=== PATIENT | male | born 1940 | race Caucasian/White ===

== ENCOUNTER 2021-09-10 11:30 | Inpatient (IN) | payer MEDICARE, SELFPAY ==
[2021-09-10] VITALS (21 sets, daily range): BP systolic 63–138; BP diastolic 33–76; PULSE 70–112; RESP 16–32; TEMP 35.7–36.6; O2SAT 96–100; BMI 27.5
--- NOTE | ~2021-09-10 | US_ITS ---
EXAMINATION: US art doppler w press LE BI DATE: 09/10/2021 14:26 INDICATION: Peripheral arterial disease. TECHNIQUE: Segmental pressures and plethysmographic and Doppler waveforms of the brachial and lower e xtremity arteries were obtained. COMPARISON: None. FINDINGS: Right and left brachial artery pressures of 113 mm Hg and 118 mm Hg, respectively, are concordant (no rmal difference <= 30 mmHg). The patient could not tolerate right thigh pressure measurements. The right ankle-brachial index (CRISTIANO ) could not be measured due to inability to cuff occlude the arteries (normal >= 0.9-1.0). The right great toe-brachial index (TBI) is 0.47 (normal >= 0.65). Arterial Doppler waveforms are biphasic in c ommon femoral artery, triphasic in superficial femoral artery, and biphasic in popliteal artery and a t the ankle. The patient could not tolerate left thigh pressure measurements. The left CRISTIANO could not be measured d ue to inability to cuff-occlude the arteries. The left TBI is 0.47. Arterial Doppler waveforms are bi phasic from common femoral artery to the ankle. IMPRESSION: 1. Decreased bilateral TBIs and nondiagnostic ABIs, consistent with arterial occlusive disease. Reviewed, dictated and finalized at location A. ND SUPPORT EQUIPMENT FITTER IMPRESSION: 1. Decreased bilateral TBIs and nondiagnostic ABIs, consistent with arterial oc clusive disease.
--- NOTE | ~2021-09-10 | US_ITS ---
EXAMINATION: US thoracentesis DATE: 09/11/2021 15:00 INDICATION: pleural effusion TECHNIQUE: The procedure and its risks, benefits, and alternatives were discussed with the patient's sales representative aircraft by phone. The skin was prepped and draped in sterile fashion. 1% lidocaine was used fo r local anesthesia. Under ultrasound guidance, a 5 Fr catheter with trochar was advanced into the lef t pleural effusion. Fluid was aspirated. The catheter was removed, and a dressing was applied. There were no immediate complications. FINDINGS: Ultrasound images demonstrate a left pleural effusion and the catheter within the fluid. IMPRESSION: 1. Successful ultrasound-guided thoracentesis yielding 1000 mL of clear, alanna-colored fluid. Reviewed, dictated and finalized at location A. PLOYMENT SPECIALIST IMPRESSION: 1. Successful ultrasound-guided thoracentesis yielding 1000 mL of clear, alanna -colored fluid.
--- NOTE | ~2021-09-10 | CT_ITS ---
EXAMINATION: CT abdomen pelvis w con DATE: 09/10/2021 13:38 INDICATION: Gastrointestinal bleeding TECHNIQUE: Computed tomography (CT) of the abdomen and pelvis was performed with 100 cc Omnipaque 350 intravenous contrast. Automated exposure control and iterative reconstruction technique were employe d. Exam dose: 1136.21 mGy-cm total exam DLP. COMPARISON: None. FINDINGS: There is patchy infiltrate or atelectasis in the lower lung zones including lingula, left l ower lobe and middle lobe and right lower lobe. There is moderate left pleural effusion with associated compressive left lower lobe atelectasis. Normal heart size. No pericardial effusion. Status post sternotomy and mitral valve replacement. Mild bilateral gynecomastia. There are numerous small stones at the dependent aspect of the gallbladder. No gallbladder wall thick ening or pericholecystic fluid or fat stranding. No bile duct or pancreatic duct dilatation. No hepatic, pancreatic, splenic space-occupying mass lesion. The adrenal glands are unremarkable. No renal mass lesion or urinary tract calculus or hydroureteronephrosis. There is a Dupree catheter within the evacuated urinary bladder, which is not optimally evaluated on t his examination. Prostate enlargement. There is extensive calcification of the abdominal aorta, superior mesenteric and renal arteries and i liac and femoral arteries. No intraperitoneal or retroperitoneal or pelvic mass lesion or adenopathy or ascites is evident. Normal appendix. No bowel obstruction, bowel wall thickening, pneumatosis or intraperitoneal free air . Included skeletal structures are unremarkable. No suspicious osteolytic or osteoblastic lesions. IMPRESSION: Moderate left pleural effusion and bilateral basilar infiltrate or atelectasis Status post mitral valve replacement Cholelithiasis Reviewed, dictated and finalized at Location A. Reviewed, dictated and finalized at location B. ANICAL ENGINEERING MANAGER
--- NOTE | ~2021-09-10 | XR_ITS ---
[id number] 09/11/2021 15:18 Indication: Status post thoracentesis. Procedure: 2 view chest Comparison: CT dated 09/11/2021 Findings: Patchy bilateral airspace disease, compatible with pneumonia. Status post median sternotomy for CABG. Small pleural effusions. Heart size normal. No pneumothorax identified. Impression: 1: Patchy bilateral airspace disease, compatible with pneumonia. 2: Small pleural effusions. Reviewed, dictated and finalized at location A. EY TECHNICIAN Impression: 1: Patchy bilateral airspace disease, compatible with pneumonia. 2: Small pleural effusions.
--- NOTE | ~2021-09-10 | CT_ITS ---
EXAMINATION: CT abdomen pelvis wo con DATE: 09/11/2021 15:23 INDICATION: Gastrointestinal bleed. Assess for signs of mesenteric vascular insufficiency. TECHNIQUE: Computed tomography (CT) of the abdomen and pelvis was performed without intravenous contr ast. Automated exposure control and iterative reconstruction technique were employed. The dose-length product was 1211.64 mGy-cm. COMPARISON: 09/11/2021 FINDINGS: Small bilateral pleural effusions. Mild patchy airspace opacities involving the bilateral lower lobes , right middle lobe and lingula. Heart size is normal. Atherosclerotic coronary artery calcific lesio n. Aortic valve calcification. Median sternotomy wires and mitral annular repair. Stenting along the right coronary artery. No pericardial effusion. Multiple small calcified gallstones at the dependent aspect of the normal gallbladder. No gallbladder wall thickening or pericholecystic infiltrate change to suggest acute cholecystitis. Liver, spleen, pancreas and bilateral adrenal glands are normal. There is residual contrast enhancement of the bilat eral kidneys and some excreted contrast in the renal collecting systems and in the bladder from the e arlier contrast-enhanced CT. Dupree catheter and some gas within the partially decompressed bladder. Bowels including appendix are normal with no wall thickening or obstruction. There is extensive calci fied atherosclerosis of the aorta and many of the other arteries. Estimated moderate 50-70% stenosis at the origin of the superior mesenteric artery, at the origin of the right renal artery, along the b ilateral common iliac arteries and at the right common femoral artery. No free intraperitoneal gas or fluid. No pathologically enlarged abdominal or pelvic lymphadenopathy. Mild scattered degenerative s keletal changes in the spine and pelvis. IMPRESSION: 1. Small bilateral pleural effusions. 2. Mild patchy groundglass opacities scattered throughout the bilateral lower lung zones which could represent pneumonia, atelectasis or mild pulmonary edema. 3. Cholelithiasis. 4. Extensive scattered atherosclerotic disease with moderate stenosis at the superior mesenteric, rig ht renal, bilateral common iliac and right common femoral arteries. Reviewed, dictated and finalized at location H. AL IMPERSONATOR IMPRESSION: 1. Small bilateral pleural effusions. 2. Mild patchy groundglass opacities scattered throughout the bilateral lower l kameron zones which could represent pneumonia, atelectasis or mild pulmonary edema. 3. Cholelithiasis. 4. Extensive scattered atherosclerotic disease with moderate stenosis at the ayala perior mesenteric, right renal, bilateral common iliac and right common femoral arteries.
[2021-09-10 12:28] LABS: Basophils Absolute Auto 0.1 K/mm3 (0.0-0.1); Basophils Percent Auto 0.5 % (0.2-1.2); Eosinophils Percent Auto 0.2 % (0-4.4); Hematocrit 39.6 % (42.0-52.0); Hemoglobin 13.3 g/dL (14.0-18.0); Immature Granulocyte Absolute 0.57 K/mm3 (0.00-0.031); Lymphocytes Absolute Auto 2.04 K/mm3 (0.9-3.2); Lymphocytes Percent Auto 10.7 % (18.3-44.2); Mean Corpuscular HGB Conc 33.6 g/dl (32-36); Mean Corpuscular Hemoglobin 31.6 pg (26-34); Mean Corpuscular Volume 94.1 fl (80-100); Mean Platelet Volume 12.3 fl (7.4-10.4); Monocytes Absolute Auto 1.6 K/mm3 (0.1-0.6); Monocytes Percent Auto 8.4 % (2.6-8.5); Neutrophils Absolute Auto 14.7 K/mm3 (1.3-6.7); Neutrophils Percent Auto 77.2 % (45.5-73.1); Platelet Count Result 373 k/mm3 (150-375); Red Blood Count 4.21 M/mm3 (4.6-6.20); Red Cell Distribution Width 12.5 % (11.5-14.5)
--- NOTE | 2021-09-10 12:30 | PC.NURSE ---
Patient presents to ED from detention with report of black stool. patient taken to room 2. Patient responsive to voice. provider in to see patient.
--- NOTE | 2021-09-10 12:36 | ECG_ITS ---
Measurements Intervals [place] Rate: 101 P: MO: 0 QRS: 27 QRSD: 95 T: 193 QT: 339 QTc: 440 Interpretive Statements SINUS OR ECTOPIC ATRIAL RHYTHM ST-T WAVE ABNORMALITY IN DIFFUSE LEADS- CONSIDER ISCHEMIA BASELINE ARTIFACT- I, II, III, AVR, AVL, AVF, V1-V6 ABNORMAL ECG Electronically Signed On 09-11-2021 16:48:49 MANAGER SHAREPOINT by Vaughn Myles D.O.
[2021-09-10 12:38] LABS: INR 1.2
[2021-09-10 12:39] LABS: Partial Thromboplastin Time 26.1 SECONDS (22.3-36.8)
[2021-09-10 12:42] LABS: Lactic Acid Reflex 6.7 mmol/L (0.7-2.1)
[2021-09-10] MEDS: SODIUM CHLORIDE 0.9% IV 1,000 ML 999 ML (12:53)
--- NOTE | 2021-09-10 13:11 | PM.IMHP ---
H&P: HPI History of Present Illness Date/Time: 09/10/21 13:11 this is an 81-year-old male patient who comes from [facility]. The patient has had a history of a CVA in the past. The patient is nonverbal and is not able to answer questions. The patient is in the bed moaning about how his back hurts. Also has multiple purple bruises to his abdomen is complaining of severe abdominal pain. The patient has a history of atrial fibrillation and is on apixaban, diabetes, CKD, and hyperlipidemia. It had been reported that the patient was recently discharged from [facility] 2 days ago to the correction. The ED provider spoke with the daughter who stated that the patient had been admitted on [facility] and was in there for 1 week. The patient was unable to urinate and a Dupree catheter was placed at that time. The patient was discharged to the correction for rehab. The patient comes in today with coffee-ground emesis. Patient's white counts 19.0. H&H is 13.3 and 39.6. Sodium 129. Potassium 5.6. Chloride 95. Carbon dioxide 20. BUN is 96 creatinine 2.7. GFR is 23. Lactic is 6.7. ALT is [address] of the abdomen and pelvis was read as Moderate left pleural effusion and bilateral basilar infiltrate or atelectasis Status post mitral valve replacement Cholelithiasis Patient's arterial Dopplers were brand as decreased bilateral TB ice and nondiagnostic lorie, consistent with arterial occlusive disease. The patient is being admitted to inpatient on 09/10/2021. Chief Complaint: GI bleed Review of Systems Review of Systems: All systems reviewed & are unremarkable except as noted in HPI and below ROS unobtainable: Yes unobtainable due to mental status Constitutional: Constitutional: Reports as per HPI and Reports no additional constitutional complaints Eyes: Eyes: Reports as per HPI and Reports no additional eye complaints ENT: Reports system reviewed and no additional complaints, except as documented and Reports Normal hearing present Cardiovascular: Cardiovascular: Reports no additional cardiovascular complaints Respiratory: Respiratory: Reports no additional respiratory complaints and Reports no additional respiratory complaints Gastrointestinal: Gastrointestinal: Reports as per HPI and Reports no additional gastrointestinal complaints Musculoskeletal: Musculoskeletal: Reports no additional musculoskeletal complaints Integumentary/Breasts: Skin/Breast: Reports system reviewed and no additional complaints, except as docu and Reports as per HPI Neurologic: Reports system reviewed and no additional complaints, except as documented, Reports as per HPI and Reports Normal hearing present Psychiatric: Psychiatric: Reports no additional psychiatric complaints and Reports as per HPI Endocrine: Endocrine: Reports no additional endocrine complaints Hematologic/Lymphatic: Hematologic/Lymphatic: Reports no additional hematologic/lymphatic complaints Allergic/Immunologic: Allergic/Immunologic: Reports no additional allergic/immunologic complaints COUNTS INCLUDE 234 BEDS AT THE [facility] Past Medical History Medical History (Updated 09/10/21 @ 18:10 by Sola Crespo NP) Acute CVA (cerebrovascular accident) CAD (coronary artery disease) Congestive heart failure DM2 (diabetes mellitus, type 2) Hyperlipidemia Urinary retention Surgical History Surgical History (Updated 09/10/21 @ 18:20 by Sola Crespo NP) History of open heart surgery Family History Family History (Updated 09/10/21 @ 18:20 by Sola Crespo NP) Unknown Family history unknown Social History Social History (Updated 09/10/21 @ 18:23 by Sola Crespo NP) Social History: According to the patient's face sheet he is retired. He has a spouse Hannah as a construction person and a daughter Eveline calix listed as a construction person as well. Smoking and alcohol unknown Meds Home Medications and Allergies Allergies Allergy/AdvReac Type Severity Reaction St
[2021-09-10 13:33] LABS: Alanine Aminotransferase 81 U/L (4-50); Alkaline Phosphatase 89 U/L (38-126); Anion Gap 14 mmol/L (8-16); Aspartate Amino Transferase 97 U/L (17-59); Bilirubin,Total 0.8 mg/dL (0.2-1.3); Blood Urea Nitrogen 96 mg/dL (9-20); Calcium 8.6 mg/dL (8.4-10.2); Carbon Dioxide 20 mmol/L (22-30); Chloride 95 mmol/L (98-107); Estimated CRCL calculation 23 ml/min; Estimated Glomerular Filt Rate 23; Glucose 433 mg/dL (65-110); Potassium 5.6 mmol/L (3.4-5.0); Sodium 129 mmol/L (137-145)
--- NOTE | 2021-09-10 14:21 | ED.GIBLEED ---
HPI - GI Bleed General Chief complaint: GI Bleed Stated complaint: RECTAL BLEEDING, 1 DARK STOOL, VOMITED X 1 Time Seen by Provider: 09/10/21 12:23 Source: RN notes reviewed Mode of arrival: EMS Limitations: clinical condition History of Present Illness HPI Narrative: 81-year-old with a history of A. fib on apixaban, diabetes, CKD hyperlipidemia, CVA was sent in from a group home with complaints of coffee-ground emesis and black-colored stool since this morning. Not much of history could be obtained from the patient. As per the nursing report patient was discharged from [facility] 2 days ago to the group home. Got little more information from the daughter patient was admitted to [facility] was seen in the hospital for 1 week. Patient during the stay in the hospital was unable to urinate Dupree catheter was placed at that time. Patient was discharged to a group home for rehab. complaint: coffee ground emesis Onset (ago): day(s) (1) Severity: moderate Context: anticoagulant use Related Data Allergies Allergy/AdvReac Type Severity Reaction Status Date / Time No Known Allergies Allergy Verified 09/10/21 14:34 Review of Systems Review of Systems: ROS unobtainable: Yes unobtainable due to mental status PMFSH Past Medical History Medical History (Updated 09/10/21 @ 15:04 by Richard Herbert MD) Acute CVA (cerebrovascular accident) Exam Narrative: GENERAL: ill -appearing, well-nourished, and in moderate distress mottled skin . HEAD: Normocephalic, atraumatic. EYES: PERRLA and EOMI.. NECK: Supple. CHEST: Clear to auscultation. No respiratory distress. HEART: Tachycardia ABDOMEN: Soft, diffuse tender, nondistended, normal active bowel sounds,multiple bruises noted in the lower abd EXTREMITIES: Normal range of motion. cold No edema. SKIN: Warm, dry, no rash. NEURO: No focal deficits. Alert Course Course Emergency Course: I was called to see this patient in the triage patient was ill-appearing and mottled and very lethargic with a very low blood pressure patient was later brought into room to his blood pressure improved upon laying him down. Not much of history could be obtained from the patient, his blood pressure has been stable after IV fluids. CT of the abdomen showed cholelithiasis. Discussed with GI Dr. Rincon agreed to see the patient in consult meanwhile I will start her on IV Protonix. Will admit to the hospital for further management. Inform the daughter was at bedside about his lab work CT findings. She is agreeable for admission. Vital Signs Vital signs: Vital Signs Temperature 35.7 C L 09/10/21 11:58 Pulse Rate 99 09/10/21 11:58 Respiratory Rate 22 H 09/10/21 11:58 Blood Pressure 76/44 L 09/10/21 11:58 Pulse Oximetry 100 09/10/21 11:58 Temperature 36.2 C L 09/10/21 13:41 Pulse Rate 103 H 09/10/21 13:41 Respiratory Rate 24 H 09/10/21 13:41 Blood Pressure 127/60 09/10/21 13:41 Pulse Oximetry 96 09/10/21 13:41 MDM - GI Bleed Differential Diagnosis Differential diagnosis: Likely Upper gastrointestinal hemorrhage and Lower gastrointestinal hemorrhage Medical Records Attestation: I reviewed the patient's medical records. Lab Data Attestation: I reviewed the patient's lab results. Result diagrams: 09/10/21 12:22 09/10/21 12:55 Labs: Lab Results 09/10/21 09/10/21 09/10/21 Range/Units 12: 12: 12:22 WBC 19.0 H (4.5-10.0) K/mm3 RBC 4.21 L (4.6-6.20) M/mm3 Hgb 13.3 L (14.0-18.0) g/dL Hct 39.6 L (42.0-52.0) % MCV 94.1 (80-100) fl MCH 31.6 (26-34) pg MCHC 33.6 (32-36) g/dl RDW 12.5 (11.5-14.5) % Plt Count 373 (150-375) k/mm3 MPV 12.3 H (7.4-10.4) fl Immature Gran % (Auto) 3.0 H (0-0.5) % Neut % (Auto) 77.2 H (45.5-73.1) % Lymph % (Auto) 10.7 L (18.3-44.2) % [place] % (Auto) 8.4 (2.6-8.5) % Eos % (Auto) 0.2 (0-4.4) % Baso % (Auto) 0.5
[2021-09-10] MEDS: Please add drug allergy info to patient profile. 1 EACH XX (14:35)
[2021-09-10] MEDS: PANTOPRAZOLE SODIUM IV 40 MG VIAL IV PUSH ×2 (14:36→17:12)
[2021-09-10] MEDS: SODIUM CHLORIDE 0.9% IV 1,000 ML 999 ML IV CONT ×2 (14:38→18:41)
[2021-09-10 15:25] LABS: Reflex Lactic Acid Yes or No Add Lactic
--- NOTE | 2021-09-10 15:44 | WPDGICN ---
Assessment and Plan Assessment and plan (1) GI (gastrointestinal bleed): Qualifiers: GI bleed type/associated pathology: unspecified gastrointestinal hemorrhage type Qualified Code(s): K92.2 - Gastrointestinal hemorrhage, unspecified Code(s): K92.2 - Gastrointestinal hemorrhage, unspecified Status: Acute Assessment and Plan: because of the hematemesis we will plan on EGD probably tomorrow afternoon because he has been receiving anticoagulants, I believe apixaban (2) CKD (chronic kidney disease): Code(s): N18.9 - Chronic kidney disease, unspecified Status: Acute Assessment and Plan: he had abnormal liver function on admission to his previous hospital but had apparently resolved, however now his BUN is 96 and creatinine 2.7. His family member was under the impression that had normalized. So perhaps this is a new acute kidney injury (3) Atrial fibrillation: Code(s): I48.91 - Unspecified atrial fibrillation Status: Acute Assessment and Plan: he has been maintained on anticoagulants which will be held were well the gastrointestinal bleeding is investigated (4) Coronavirus infection: Code(s): B34.2 - Coronavirus infection, unspecified Status: Acute Assessment and Plan: recently treated at [facility] GI Consult Note Consult date/time: 09/10/21 15:44 HPI: Faustino Altamirano is a 81 year old male who came to the emergency room this morning from a nursing facility that he is entered few days ago. He had spent 3 and half weeks in the hospital in [place]. He 1st had gone there with severe constipation and fecal impaction as well as urinary retention. He had acute kidney injury. His daughter states that after few days the and we are aware of some symptoms of pulmonary congestion and realized that he had COVID. from then on the focus seems have been on COVID. She states that he never was able to eat while in hospital and he says that he has only had liquids in the intermediate. He vomited coffee-ground material this morning. He has diffuse abdominal pain which apparently began sometime last night. It does not seem to localize, and he states that his whole belly is sore. A CT scan of the abdomen was unremarkable, though it did show gallstones. Of concern is that he has an elevated lactic acid level 6.5. Also white blood count is elevated. He is a diabetic. He stopped smoking 25 years ago. 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 He is chronically on blood thinners. Review of Systems Review of Systems: All systems reviewed & are unremarkable except as noted in HPI and below PMFSH Past Medical History Medical History Acute CVA (cerebrovascular accident) Meds Home Medications and Allergies Allergies Allergy/AdvReac Type Severity Reaction Status Date / Time No Known Allergies Allergy Verified 09/10/21 14:34 Vital Signs Vital Signs - 24 hr 09/10/21 11:58 09/10/21 12:15 09/10/21 12:23 Temperature 35.7 C L Pulse Rate 99 104 H Respiratory Rate 22 H 30 H Blood Pressure 76/44 L 63/33 L 113/61 Pulse Oximetry 100 09/10/21 12:24 09/10/21 13:22 09/10/21 13:41 Temperature 36.2 C L Pulse Rate 101 H 103 H 103 H Respiratory Rate 18 24 H 23 H Blood Pressure 113/61 113/55 L 127/60 Pulse Oximetry 96 09/10/21 13:45 09/10/21 14:35 09/10/21 15:00 Temperature Pulse Rate 103 H 98 102 H Respiratory Rate 21 H 20 27 H Blood Pressure 138/61 118/65 115/76 Pulse Oximetry 100 09/10/21 15:30 Temperature Pulse Rate 106 H Respiratory Rate 32 H Blood Pressure 126/66 Pulse Oximetry Exam Const: General: cooperative and uncomfortable Orientation/consciousness: patient oriented x3 Cardio: Rate: regular rate Rhythm: regular rhythm GI: GI Palp: Yes abdominal tenderness ( generalized), Yes Soft to palpation, No Guardi
--- NOTE | 2021-09-10 16:10 | PC.NURSE ---
GI in to consult patient. Patient allowed ice chips. ice chips well tolerated by patient.
[2021-09-10] MEDS: SODIUM CHLORIDE 0.9% IV 1,000 ML 125 ML IV CONT (16:20)
--- NOTE | 2021-09-10 18:35 | PC.NURSE ---
RAMEZ Selby - [facility]
[2021-09-10 18:38] LABS: Hematocrit 32.2 % (42.0-52.0)
[2021-09-10 19:05] LABS: Alveolar/Arterial O2 Gradient 67.9 mmHg; Base Excess ABG -5.6 mEq/l (+/-2.0); Fractional Inspired Oxygen 26 %; HCO3 ABG 16.6 mEq/l (22.0-26.0); Oxygen Content ABG 16.5 %vol (16.0-22.0); Oxygen Saturation ABG 97.4 % (95.0-100.0); Oxyhemoglobin 95.4 % THb (90.0-100.0); PO2 FiO2 Ratio Arterial Blood 3.42 %; Total Hemoglobin 12.2 g/dL (12.0-18.0); pH ABG 7.458 (7.350-7.450)
[2021-09-10 19:06] LABS: Device NASAL CANNULA; Liters per Minute 1.5 LPM; Modified Allen's Test Unable to perform; Site Drawn LEFT RADIAL
[2021-09-10 19:29] LABS: Anion Gap 9 mmol/L (8-16); Blood Urea Nitrogen 104 mg/dL (9-20); Calcium 7.9 mg/dL (8.4-10.2); Carbon Dioxide 21 mmol/L (22-30); Chloride 97 mmol/L (98-107); Estimated CRCL calculation 24 ml/min; Estimated Glomerular Filt Rate 24; Glucose 405 mg/dL (65-110); Lactate Dehydrogenase 943 U/L (313-618); Magnesium 2.4 mg/dL (1.6-2.3); Potassium 6.5 mmol/L (3.4-5.0); Sodium 127 mmol/L (137-145)
[2021-09-10] MEDS: ALBUTEROL SULFATE NEB 2.5 MG/0.5 ML INH 5 MG INHALATION (20:10)
[2021-09-10] MEDS: DEXTROSE 50% 25 GM/50 ML SYRINGE IV PUSH (20:11)
[2021-09-10] MEDS: SODIUM POLYSTYRENE SULFONONATE 15 GM/60 ML BTL 30 GM RECTAL (20:12)
[2021-09-10] MEDS: INSULIN HUMAN REGULAR (*BKC) 100 UNITS/ML 10 UNITS IV PUSH (20:28)
[2021-09-10] MEDS: ONDANSETRON INJ 4 MG/2 ML VIAL IV PUSH (21:29)
[2021-09-10 21:33] LABS: Glucose Point of Care 434 mg/dl (65-105)
--- NOTE | 2021-09-10 22:54 | ADMGEN ---
This patient, Faustino Altamirano, was admitted to IMU Room 214-01. Patient/family oriented to hospital policies and general routines including ID bracelet, bed and alarms, visiting hours, pain management, procedures, bathroom and other care routines, personal items, smoking policy, room service/diet, and visiting hours. Information on how to activate the Rapid Response Team has been discussed. Patient/Family are encouraged to report perceived risks to care and to ask questions if they do not understand what they are told or what they should do.
[2021-09-11] VITALS (20 sets, daily range): BP systolic 79–135; BP diastolic 34–62; PULSE 89–113; RESP 18–28; TEMP 36.2–37.3; O2SAT 93–100
[2021-09-11 00:20] LABS: Hematocrit 27.1 % (42.0-52.0); Hemoglobin 9.3 g/dL (14.0-18.0)
[2021-09-11] MEDS: SODIUM CHLORIDE 0.9% IV 1,000 ML 125 ML IV CONT (05:26)
[2021-09-11 06:47] LABS: Basophils Absolute Auto 0.1 K/mm3 (0.0-0.1); Basophils Percent Auto 0.3 % (0.2-1.2); Eosinophils Percent Auto 0.1 % (0-4.4); Hematocrit 26.5 % (42.0-52.0); Hemoglobin 9.1 g/dL (14.0-18.0); Immature Granulocyte Absolute 0.32 K/mm3 (0.00-0.031); Immature Granulocyte Percent A 1.7 % (0-0.5); Lymphocytes Absolute Auto 1.12 K/mm3 (0.9-3.2); Lymphocytes Percent Auto 5.8 % (18.3-44.2); Mean Corpuscular HGB Conc 34.3 g/dl (32-36); Mean Corpuscular Hemoglobin 31.5 pg (26-34); Mean Corpuscular Volume 91.7 fl (80-100); Mean Platelet Volume 12.6 fl (7.4-10.4); Monocytes Absolute Auto 1.3 K/mm3 (0.1-0.6); Neutrophils Absolute Auto 16.4 K/mm3 (1.3-6.7); Neutrophils Percent Auto 85.1 % (45.5-73.1); Platelet Count Result 253 k/mm3 (150-375); Red Blood Count 2.89 M/mm3 (4.6-6.20); Red Cell Distribution Width 12.3 % (11.5-14.5); White Blood Count 19.2 K/mm3 (4.5-10.0)
[2021-09-11 06:55] LABS: Lactic Acid Reflex 2.9 mmol/L (0.7-2.1)
--- NOTE | 2021-09-11 06:58 | WPDGIPROGNO ---
Progress Note: A&P Assessment and Plan (1) GI (gastrointestinal bleed): Qualifiers: GI bleed type/associated pathology: unspecified gastrointestinal hemorrhage type Qualified Code(s): K92.2 - Gastrointestinal hemorrhage, unspecified Code(s): K92.2 - Gastrointestinal hemorrhage, unspecified Status: Acute Assessment and Plan: EGD just done reveals ulcerations in distal esophagus. No active bleeding. The stomach revealed mild atrophic appearing gastritis. The specimen is obtained for H pylori. Duodenum was unremarkable. Rectal examination revealed dark red blood in the vault. I suspect he may have ischemic colitis. We will schedule her for colonoscopy to be don (2) CKD (chronic kidney disease): Code(s): N18.9 - Chronic kidney disease, unspecified Status: Acute Assessment and Plan: he had abnormal renal function on admission to his previous hospital but had apparently resolved, however now his BUN is 96 and creatinine 2.7. His family member was under the impression that had normalized. So perhaps this is a new acute kidney injury (3) Atrial fibrillation: Code(s): I48.91 - Unspecified atrial fibrillation Status: Acute Assessment and Plan: he has been maintained on anticoagulants which will be held were well the gastrointestinal bleeding is investigated (4) Coronavirus infection: Code(s): B34.2 - Coronavirus infection, unspecified Status: Acute Assessment and Plan: recently treated at [facility] Subjective Date/time seen: 09/10/21:Faustino came to the emergency room this morning from a nursing facility that he is entered few days ago. He had spent 3 and half weeks in the hospital in [place]. He 1st had gone there with severe constipation and fecal impaction as well as urinary retention. He had acute kidney injury. His daughter states that after few days the and we are aware of some symptoms of pulmonary congestion and realized that he had COVID. from then on the focus seems have been on COVID. She states that he never was able to eat while in hospital and he says that he has only had liquids in the custodial. He vomited coffee-ground material this morning. He has diffuse abdominal pain which apparently began sometime last night. It does not seem to localize, and he states that his whole belly is sore. A CT scan of the abdomen was unremarkable, though it did show gallstones. Of concern is that he has an elevated lactic acid level 6.5. Also white blood count is elevated. 09/11/21 06:58 Now, his pain is more focused in the RLQ. He feels better overall. Lactic acid level from this morning is pending. His hemoglobin did drop. I told that we are awaiting surgical consult because of my concerns about ischemic bowel. If lactate is lower I would consider prepping him for colonoscopy to be done tomorrow Review of Systems Review of Systems: All systems reviewed & are unremarkable except as noted in HPI and below Exam Const: General: ill appearing and uncomfortable Cardio: Rhythm: abnormal rhythm irregularly irregular GI: GI Palp: Yes Soft to palpation and Yes Tenderness to palpation present (GI) ( particularly right lower quadrant) Rectal Exam: abnormal sphincter tone ( decreased) and Abnormal stool present ( dark blood in rectal vault) Skin: General skin exam: ecchymosis ( throughout upper extremities) and no jaundice Objective Data Vital Signs Vital Signs: Vital Signs - 24 hr 09/10/21 11:58 09/10/21 12:15 09/10/21 12:23 Temperature 35.7 C L Pulse Rate 99 104 H Respiratory Rate 22 H 30 H Blood Pressure 76/44 L 63/33 L 113/61 Pulse Oximetry 100 09/10/21 12:24 09/10/21 13:22 09/10/21 13:41 Temperature 36.2 C L Pulse Rate 101 H 103 H 103 H Respiratory Rate 18 24 H 23 H Blood Pressure 113/61 113/55 L 127/60 Pulse Oximetry 96 09/10/21 13:45 09/10/21 14:35 09/10/21 15:00 Temperature
[2021-09-11 06:59] LABS: Anion Gap 7 mmol/L (8-16); Blood Urea Nitrogen 102 mg/dL (9-20); Calcium 7.3 mg/dL (8.4-10.2); Carbon Dioxide 21 mmol/L (22-30); Chloride 97 mmol/L (98-107); Estimated CRCL calculation 20 ml/min; Estimated Glomerular Filt Rate 23; Glucose 573 mg/dL (65-110); Lactate Dehydrogenase 822 U/L (313-618); Magnesium 2.2 mg/dL (1.6-2.3); Potassium 5.8 mmol/L (3.4-5.0); Sodium 125 mmol/L (137-145)
[2021-09-11] MEDS: PANTOPRAZOLE SODIUM IV 40 MG VIAL IV PUSH ×2 (09:06→18:11)
[2021-09-11] MEDS: INSULIN ASPART (*BKC) 100 UNITS/ML SUB-Q ×3 (09:08→18:07)
[2021-09-11] MEDS: INSULIN GLARGINE (*BKC) 100 UNITS/ML 25 UNITS SUB-Q ×2 (09:08→13:55)
--- NOTE | 2021-09-11 09:15 | PC.NURSE ---
Notified Dr harrington of Critical blood sugar. Ordered lantus and novolog. is aware of EGD, Thoracentesis
--- NOTE | 2021-09-11 09:17 | PC.NURSE ---
Dr Sprague and Dr Diego approved patient to transport to procedures without a nurse
[2021-09-11 09:29] LABS: Glucose Point of Care 485 mg/dl (65-105)
[2021-09-11 09:38] LABS: Reflex Lactic Acid Yes or No Add Lactic
[2021-09-11] MEDS: LACTATED RINGERS 1,000 ML 150 ML IV CONT (10:30)
--- NOTE | 2021-09-11 10:48 | WPDANESEPPF ---
Anes - Initial Pre Proc Eval Procedure: Operation Date: 09/11/21 14:00 Proposed Procedures p Esophagogastroduodenoscopy - Qamar Rincon MD Date/Time: 09/11/21 10:48 Surgeon: Osito Juarez MD Pre Op Diagnosis: Sepsis/GI bleed Patient Data Age: 81 Gender: M Height: 1.78 m Weight: 87 kg Last Vital Signs Temp 36.2 C L 09/11/21 10:25 Pulse 100 09/11/21 10:25 Resp 22 H 09/11/21 10:25 BP 135/59 L 09/11/21 10:25 Pulse Ox 96 09/11/21 10:25 Allergies Allergy/AdvReac Type Severity Reaction Status Date / Time No Known Allergies Allergy Verified 09/11/21 10:23 Home Medications Medication Instructions Recorded Confirmed Type acetaminophen 650 mg PO Q6H PRN 09/10/21 09/11/21 History apixaban [Eliquis] 2.5 mg PO BID 09/10/21 09/11/21 History aspirin [Adult Aspirin] 81 mg PO DAILY 09/10/21 09/11/21 History atorvastatin 80 mg PO HS 09/10/21 09/11/21 History bisacodyl 10 mg RECTAL DAILY PRN 09/10/21 09/11/21 History ezetimibe 10 mg PO HS 09/10/21 09/11/21 History furosemide 40 mg PO DAILY 09/10/21 09/11/21 History insulin detemir U-100 [Levemir 35 unit SUBCUT HS 09/10/21 09/11/21 History FlexTouch U-100 Insuln] insulin lispro See Protocol SUBCUT TIDWM 09/10/21 09/11/21 History magnesium citrate [Citroma] 300 ml PO DAILY PRN 09/10/21 09/11/21 History magnesium hydroxide [Milk of 400 mg PO DAILY PRN 09/10/21 09/11/21 History Magnesia] metoprolol tartrate 50 mg PO BID 09/10/21 09/11/21 History ondansetron HCl [Zofran] 4 mg PO Q6H PRN 09/10/21 09/11/21 History polyethylene glycol 3350 17 g PO DAILY PRN 09/10/21 09/11/21 History sodium phosphates [Fleet Enema] 118 ml RECTAL DAILY PRN 09/10/21 09/11/21 History Laboratory Tests 09/10/21 09/10/21 09/10/21 12: 12: 12: WBC 19.0 K/mm3 H K/mm3 (4.5-10.0) RBC 4.21 M/mm3 L M/mm3 (4.6-6.20) Hgb 13.3 g/dL L g/dL (14.0-18.0) Hct 39.6 % L % (42.0-52.0) MCV 94.1 fl fl (80-100) MCH 31.6 pg pg (26-34) MCHC 33.6 g/dl g/dl (32-36) RDW 12.5 % % (11.5-14.5) Plt Count 373 k/mm3 k/mm3 (150-375) MPV 12.3 fl H fl (7.4-10.4) Immature Gran % (Auto) 3.0 % H % (0-0.5) Neut % (Auto) 77.2 % H % (45.5-73.1) Lymph % (Auto) 10.7 % L % (18.3-44.2) [place] % (Auto) 8.4 % % (2.6-8.5) Eos % (Auto) 0.2 % % (0-4.4) Baso % (Auto) 0.5 % % (0.2-1.2) Lymph # (Auto) 2.04 K/mm3 K/mm3 (0.9-3.2) [place] # (Auto) 1.6 K/mm3 H K/mm3 (0.1-0.6) Eos # (Auto) 0.0 K/mm3 K/mm3 (0-0.3) Baso # (Auto) 0.1 K/mm3 K/mm3 (0.0-0.1) Abs Immat Gran (auto) 0.57 K/mm3 H K/mm3 (0.00-0.031) Absolute Neuts (auto) 14.7 K/mm3 H K/mm3 (1.3-6.7) Absolute Nucleated RBC 0.0 K/mm3 K/mm3 (0.0-0.012) Nucleated RBC % 0.0 % % (0.0-0.2) PT 15.0 Seconds H Seconds (11.1-14.7) INR 1.2 APTT 26.1 SECONDS SECONDS (22.3-36.8) Puncture Site ABG pH ABG pCO2 ABG pO2 ABG PO2/FiO2 Ratio ABG HCO3 ABG O2 Saturation ABG O2 Content ABG Base Excess A-a Gradient Oxyhemoglobin Total Hemoglobin O2 Delivery Device O2 Liters/Min FiO2 Sodium Potassium Chloride Carbon Dioxide Anion Gap BUN Creatinine Estim Creat Clear Calc Estimated GFR Glucose POC Capillary Glucose Lactic Acid 6.7 mmol/L H* mmol/L (0.7-2.1) Calcium Magnesium Ferritin Total Bilirubin AST ALT Alkaline Phosphatase Lactate Dehydrogenase
[2021-09-11 12:52] LABS: Glucose Point of Care 486 mg/dl (65-105)
[2021-09-11 13:05] LABS: Hematocrit 24.2 % (42.0-52.0); Hemoglobin 8.5 g/dL (14.0-18.0)
[2021-09-11 13:17] LABS: Lactic Acid 2.8 mmol/L (0.7-2.1)
[2021-09-11 13:21] LABS: Anion Gap 7 mmol/L (8-16); Blood Urea Nitrogen 105 mg/dL (9-20); Calcium 7.5 mg/dL (8.4-10.2); Carbon Dioxide 21 mmol/L (22-30); Chloride 100 mmol/L (98-107); Estimated CRCL calculation 18 ml/min; Estimated Glomerular Filt Rate 21; Glucose 533 mg/dL (65-110); Potassium 5.9 mmol/L (3.4-5.0); Sodium 128 mmol/L (137-145)
[2021-09-11 13:26] LABS: Glucose Point of Care 484 mg/dl (65-105)
[2021-09-11 15:45] LABS: pH Pleural Fluid 7.378 (7.210-7.500)
[2021-09-11 15:52] LABS: Appearance Pleural Fluid Hazy (Clear); Color Pleural Fluid Yellow (Colorless); Pleural fluid source Pleural fluid
[2021-09-11 15:53] LABS: Lymphocytes Pleural Fluid 53 %; Macrophages Pleural Fluid 9 %; Mesothelial Cells Pleural Flui 2 %; Monocytes Pleural Fluid 32 %; Neutrophils Pleural Fluid 4 % (0-25); Nucleated Cell Pleural Fluid 385 /uL (0-1000); RBC Pleural Fluid 440 /uL (0-0)
[2021-09-11] MEDS: PEG (High)/E-LYTE SOLN 4,000 ML BTL 3000 ML PO (16:00)
--- NOTE | 2021-09-11 16:43 | PM.IMPN ---
Progress Note: A&P Assessment and Plan (1) Sepsis: Qualifiers: Sepsis acute organ dysfunction status: with acute organ dysfunction Sepsis type: sepsis due to unspecified organism Severe sepsis acute organ dysfunction type: unspecified Severe sepsis shock status: without septic shock Qualified Code(s): A41.9 - Sepsis, unspecified organism; R65.20 - Severe sepsis without septic shock Code(s): A41.9 - Sepsis, unspecified organism Status: Acute Assessment and Plan: Blood cultures are pending. I ordered UA with reflux. The patient was placed on Zosyn and vancomycin. He has leukocytosis with a white count of 19.0. CT of the abdomen was completed. Thoracentesis has been ordered. Urinalysis has been ordered. Patient id has tachycardia and blood pressure is soft. Lactic is 7.0. 09/11/2021 Interval history: patient with coffee-ground emesis was seen by GI and had a EGD showed patient esophageal ulcers and gastritis but there was no obvious bleeding, GI did examine rectum and found some blood, plan is to prepare the patient for for colonoscopy,, however patient did have large BM consisting of what appeared to be blood I discussed this with the GI he and his suspect most likely remaining blood in the rectum unlikely acute bleeding, because patient had been NPO he did not received his home medication. there was also concern upon arrival patient lactic acid was 7 and concerning for sepsis patient does not have a fever however white counts are elevated we started the patient on Zosyn and vancomycin will follow blood culture and continue to monitor lactic acid and is trending down, CT scan of abdomen is negative for ischemic bowel. (2) GI (gastrointestinal bleed): Qualifiers: GI bleed type/associated pathology: unspecified gastrointestinal hemorrhage type Qualified Code(s): K92.2 - Gastrointestinal hemorrhage, unspecified Code(s): K92.2 - Gastrointestinal hemorrhage, unspecified Status: Acute Assessment and Plan: Continue with q.6 H&H. GI has been consulted. Type and crossmatch and transfuse as necessary. There is a plan for an EGD tomorrow afternoon he had been on Eliquis and that is now on hold. (3) Hyperlipidemia: Code(s): E78.5 - Hyperlipidemia, unspecified Status: Acute Assessment and Plan: Hold medication. (4) Hyponatremia: Code(s): E87.1 - Hypo-osmolality and hyponatremia Status: Acute Assessment and Plan: Continue with IV fluids. Sodium is 129. Recheck sodium and potassium as well as magnesium. (5) DM2 (diabetes mellitus, type 2): Code(s): E11.9 - Type 2 diabetes mellitus without complications Status: Chronic Assessment and Plan: Accu-Cheks AC and HS for tonight. The patient be NPO after midnight. Sliding scale insulin. (6) Chronic indwelling Dupree catheter: Code(s): Z97.8 - Presence of other specified devices Status: Acute Assessment and Plan: The patient has a history of urinary tension and currently has a indwelling Dupree catheter placed. (7) Congestive heart failure: Code(s): I50.9 - Heart failure, unspecified Status: Acute Assessment and Plan: Hold medications for now (8) Hypertension: Code(s): I10 - Essential (primary) hypertension Status: Acute Assessment and Plan: Hold medications (9) Atrial fibrillation: Code(s): I48.91 - Unspecified atrial fibrillation Status: Acute Assessment and Plan: Hold Eliquis Subjective Date/time seen: 09/11/21 16:43 this is an 81-year-old male patient who comes from [facility]. The patient has had a history of a CVA in the past. The patient is nonverbal and is not able to answer questions. The patient is in the bed moaning about how his back hurts. Also has multiple purple bruises to his abdomen is complaining of severe abdominal pain. The patient has a history of atrial fibrillati
--- NOTE | 2021-09-11 17:13 | PM.CNGS ---
Assessment and Plan Assessment and plan (1) Abdominal pain: Code(s): R10.9 - Unspecified abdominal pain Status: Acute Assessment and Plan: With improvement in serum lactate as well as repeat CT scan with no evidence of bowel change, I do not feel his abdominal pain and symptomatology with abnormal labs represent mesenteric vascular insufficiency. 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 Do not feel there is evidence of mesenteric vascular insufficiency. No other surgical pathology noted as a potential cause either. (2) GI (gastrointestinal bleed): Qualifiers: GI bleed type/associated pathology: unspecified gastrointestinal hemorrhage type Qualified Code(s): K92.2 - Gastrointestinal hemorrhage, unspecified Code(s): K92.2 - Gastrointestinal hemorrhage, unspecified Status: Acute Assessment and Plan: Esophageal ulcers and gastritis noted on EGD. No active bleeding. To have colonoscopy tomorrow. (3) Diabetes mellitus with hyperglycemia, with long-term current use of insulin: Code(s): E11.65 - Type 2 diabetes mellitus with hyperglycemia; Z79.4 - MCFP (current) use of insulin Status: Acute Assessment and Plan: Blood sugars running near 500. Can also cause abdominal pain and metabolic disturbance. (4) Uremia: Code(s): N19 - Unspecified kidney failure Status: Acute Assessment and Plan: BUN 105 and creatinine nearly 3. (5) History of CVA (cerebrovascular accident): Code(s): Z86.73 - Personal history of transient ischemic attack (TIA), and cerebral infarction without residual deficits Status: Acute (6) Atrial fibrillation: Code(s): I48.91 - Unspecified atrial fibrillation Status: Acute (7) Chronic anticoagulation: Code(s): Z79.01 - bed bug exterminator (current) use of anticoagulants Status: Acute Assessment and Plan: Held due to GI bleeding (8) Lactic acidemia: Code(s): E87.2 - Acidosis Status: Acute Assessment and Plan: much improved, may be related to uremia and metabolic acidosis. Lactate down to 2.9 today. History of Present Illness Consult details Consult date: 09/11/21 Reason for consult: abdominal pain Requesting physician: Sola Crespo NP Narrative: Patient is an 81-year-old man who presented to our emergency room yesterday, 09/10/2021 with complaints of abdominal pain as well coffee-ground emesis and black colored stools that started yesterday morning. Not much history could be obtained from the patient initially. Reviewing the records, his daughter had reported he was in [facility] for over 3 weeks with COVID. He had presented to [facility] with fecal impaction as well as urinary retention. During his admission, some signs of pulmonary congestion were noted and COVID was diagnosed. The patient's GI symptoms improved but did not resolve. He was discharged to a detention with a Dupree catheter. he was sent to the detention for rehab. He has had a previous stroke with right-sided weakness. He is an insulin-dependentdiabetic and takes Eliquis for atrial fibrillation. The patient was in the detention for only 2 days when he was transferred to our emergency room with the above complaints. Dr. Rincon saw the patient yesterday as well as the hospitalist service. With his GI bleeding his Eliquis was held. His hemoglobin on admission was 13.3 but has decreased to 8.5 by 1 o'clock today. [place] [address] yesterday and again this morning. He had a CT scan of the abdomen and pelvis while in the emergency room which was essentially negative other than pleural effusions, atelectasis, status post mitral valve replacement and, cholelithiasis. There was a lot of atherosclerotic disease noted on the CT scan but no evidence of bow
[2021-09-11 17:29] LABS: Glucose Point of Care 440 mg/dl (65-105)
--- NOTE | 2021-09-11 18:01 | ECG_ITS ---
Measurements Intervals [place] Rate: 111 P: [place]: 0 QRS: 267 QRSD: 163 T: 86 QT: 333 QTc: 454 Interpretive Statements ATRIAL FIBRILLATION WITH RAPID VENTRICULAR RESPONSE RIGHT AXIS DEVIATION RIGHT BUNDLE BRANCH BLOCK ST-T WAVE ABNORMALITY IN LAT/HIGH LAT LEADS- CONSIDER ISCHEMIA ABNORMAL ECG Electronically Signed On 09-11-2021 20:33:42 DECORATING INSPECTOR by Vaughn Myles D.O.
[2021-09-11] MEDS: BISACODYL 5 MG TABLET EC 10 MG PO ×2 (18:06→20:48)
[2021-09-11 18:50] LABS: Hematocrit 24.8 % (42.0-52.0); Hemoglobin 8.5 g/dL (14.0-18.0)
[2021-09-11] MEDS: SODIUM CHLORIDE 0.9% IV 250 ML 30 ML IV CONT (20:48)
[2021-09-11] MEDS: METOPROLOL TARTRATE 12.5 MG TABLET PO (20:48)
[2021-09-12] VITALS (22 sets, daily range): BP systolic 92–124; BP diastolic 43–68; PULSE 60–105; RESP 14–20; TEMP 36.3–37.2; O2SAT 91–99; BMI 29.0
[2021-09-12 00:41] LABS: Glucose Point of Care 333 mg/dl (65-105)
[2021-09-12] MEDS: BISACODYL 5 MG TABLET EC 10 MG PO (04:04)
[2021-09-12 06:21] LABS: Glucose Point of Care 291 mg/dl (65-105)
--- NOTE | 2021-09-12 06:30 | PC.NURSE ---
To GI Lab per jaz, IV intact and saline locked. Report given to MAAME Martinez.
--- NOTE | 2021-09-12 07:02 | WPDANESEFPP ---
Anes - Eval Final PreProcedure Day of Procedure 09/12/21 07:02 Patient weight: overweight Heart: regular rate and rhythm Lungs: clear to auscultation Neurological: lethargic Last oral intake: >/= 8 hours ASA classification: IV Emergent: no Anesthetic plan: proceed Anesthesia type and monitoring: general GIVS and standard monitoring Results Review: All pre-operative results and documents have been reviewed as part of the pre-operative evaluation. Informed Consent: The patient's anesthetic plan and its attendant risks and benefits were discussed with the patient/family/POA. Questions were solicited and answers provided to the satisfaction of the patient/family/POA.
[2021-09-12] MEDS: LACTATED RINGERS 1,000 ML 150 ML IV CONT (07:17)
--- NOTE | 2021-09-12 08:04 | WPDANESPN ---
Anes - Prog Note Post-Op Date/Time: 09/12/21 08:04 Cardiovascular status: normal Respiratory status: normal Airway patency: baseline Mental status: baseline Post-Op hydration status: normal Vital Signs: Last Vital Signs Temp 36.3 C L 09/12/21 07:03 Pulse 100 09/12/21 07:55 Resp 14 09/12/21 07:55 BP 111/64 09/12/21 07:55 Pulse Ox 98 09/12/21 07:55 Pain Score (VAS): 0 I/O: Intake & Output 09/11/21 09/12/21 09/12/21 23:59 07:59 15:59 Intake Total 50 350 100 Output Total 500 Balance 50 -150 100 Laboratory Tests 09/11/21 18:44 09/11/21 12:58 09/10/21 09/11/21 09/11/21 12:59 06:20 08:07 Hgb Hct Sodium Potassium Chloride Carbon Dioxide Anion Gap BUN Creatinine Estim Creat Clear Calc Estimated GFR Glucose POC Capillary Glucose 485 H Lactic Acid Calcium Ferritin 1400.00 H TSH (Reflex) 1.930 Pleural Fluid Source Pleural Color Pleural Appearance Pleural pH Pleural RBC Pleural Nuc Cells Pleural Neutrophils Pleural Lymphocytes Pleural Monocytes Pleural Macrophages Pleural Mesothelial Pleural LDH Pleural Glucose Pleural Amylase Pleural Cholesterol Blood Type A Positive Antibody Screen Negative Crossmatch See Detail 09/11/21 09/11/21 09/11/21 12:37 12:58 12:58 Hgb 8.5 L Hct 24.2 L Sodium Potassium Chloride Carbon Dioxide Anion Gap BUN Creatinine Estim Creat Clear Calc Estimated GFR Glucose POC Capillary Glucose 486 H Lactic Acid 2.8 H Calcium Ferritin TSH (Reflex) Pleural Fluid Source Pleural Color Pleural Appearance Pleural pH Pleural RBC Pleural Nuc Cells Pleural Neutrophils Pleural Lymphocytes Pleural Monocytes Pleural Macrophages Pleural Mesothelial Pleural LDH Pleural Glucose Pleural Amylase Pleural Cholesterol Blood Type Antibody Screen Crossmatch 09/11/21 09/11/21 09/11/21 12:58 13:23 14:17 Hgb Hct Sodium 128 L Potassium 5.9 H Chloride 100 Carbon Dioxide 21 L Anion Gap 7 L BUN 105 H Creatinine 2.90 H Estim Creat Clear Calc 18 Estimated GFR 21 L Glucose 533 H* POC Capillary Glucose 484 H Lactic Acid Calcium 7.5 L Ferritin TSH (Reflex) Pleural Fluid Source Pleural Color Pleural Appearance Pleural pH 7.378 Pleural RBC Pleural Nuc Cells Pleural Neutrophils Pleural Lymphocytes Pleural Monocytes Pleural Macrophages Pleural Mesothelial Pleural LDH Pleural Glucose Pleural Amylase Pleural Cholesterol Blood Type Antibody Screen Crossmatch 09/11/21 09/11/21 09/11/21 14:17 14:17 14:26 Hgb Hct Sodium Potassium Chloride Carbon Dioxide Anion Gap BUN Creatinine Estim Creat Clear Calc Estimated GFR Glucose POC Capillary Glucose Lactic Acid Calcium Ferritin TSH (Reflex) Pleural Fluid Source Pleural fluid Pleural Color Yellow Pleural Appearance Hazy Pleural pH Pleural RBC 440 H Pleural Nuc Cells 385 Pleural Neutrophils 4 Pleural Lymphocytes 53 Pleural Monocytes 32 Pleural Macrophages 9 Pleural Mesothelial 2 Pleural LDH Pending Pleural Glucose Pending Pleural Amylase Pending Pleural Cholesterol Pending Blood Type Antibody Screen Crossmatch 09/11/21 09/11/21 09/12/21 16:03 18:44 00:10 Hgb 8.5 L Hct 24.8 L Sodium Potassium Chloride Carbon Dioxide Anion Gap BUN Creatinine Estim Creat Clear Calc Estimated GFR Glucose POC Capillary Glucose 440 H 333 H Lactic Acid Calcium Ferritin TSH (Reflex) Pleural Fluid Source Pleural Color Pleural Appearance Pleural pH Pleural RBC Pleural Nuc Cells Pleural Neutrophils Ple
[2021-09-12 08:56] LABS: Basophils Percent Auto 0.2 % (0.2-1.2); Eosinophils Absolute Auto 0.1 K/mm3 (0-0.3); Eosinophils Percent Auto 0.3 % (0-4.4); Hematocrit 28.3 % (42.0-52.0); Hemoglobin 9.9 g/dL (14.0-18.0); Immature Granulocyte Absolute 0.27 K/mm3 (0.00-0.031); Immature Granulocyte Percent A 1.6 % (0-0.5); Lymphocytes Absolute Auto 1.08 K/mm3 (0.9-3.2); Lymphocytes Percent Auto 6.5 % (18.3-44.2); Mean Corpuscular Hemoglobin 31.6 pg (26-34); Mean Corpuscular Volume 90.4 fl (80-100); Mean Platelet Volume 12.4 fl (7.4-10.4); Monocytes Absolute Auto 1.3 K/mm3 (0.1-0.6); Neutrophils Percent Auto 83.4 % (45.5-73.1); Nucleated Red Blood Cells Perc 0.1 % (0.0-0.2); Platelet Count Result 190 k/mm3 (150-375); Red Blood Count 3.13 M/mm3 (4.6-6.20); Red Cell Distribution Width 13.5 % (11.5-14.5); White Blood Count 16.7 K/mm3 (4.5-10.0)
[2021-09-12 09:05] LABS: Magnesium 2.5 mg/dL (1.6-2.3)
[2021-09-12 09:34] LABS: Glucose Point of Care 293 mg/dl (65-105)
[2021-09-12] MEDS: PANTOPRAZOLE SODIUM IV 40 MG VIAL IV PUSH ×2 (09:59→16:42)
[2021-09-12] MEDS: INSULIN ASPART (*BKC) 100 UNITS/ML SUB-Q ×3 (10:00→16:47)
[2021-09-12 13:29] LABS: Glucose Point of Care 347 mg/dl (65-105)
--- NOTE | 2021-09-12 15:42 | PM.IMPN ---
Progress Note: A&P Assessment and Plan (1) Sepsis: Qualifiers: Sepsis acute organ dysfunction status: with acute organ dysfunction Sepsis type: sepsis due to unspecified organism Severe sepsis acute organ dysfunction type: unspecified Severe sepsis shock status: without septic shock Qualified Code(s): A41.9 - Sepsis, unspecified organism; R65.20 - Severe sepsis without septic shock Code(s): A41.9 - Sepsis, unspecified organism Status: Acute Assessment and Plan: Blood cultures are pending. I ordered UA with reflux. The patient was placed on Zosyn and vancomycin. He has leukocytosis with a white count of 19.0. CT of the abdomen was completed. Thoracentesis has been ordered. Urinalysis has been ordered. Patient id has tachycardia and blood pressure is soft. Lactic is 7.0. 09/11/2021 Interval history: patient with coffee-ground emesis was seen by GI and had a EGD showed patient esophageal ulcers and gastritis but there was no obvious bleeding, GI did examine rectum and found some blood, plan is to prepare the patient for for colonoscopy,, however patient did have large BM consisting of what appeared to be blood I discussed this with the GI he and his suspect most likely remaining blood in the rectum unlikely acute bleeding, because patient had been NPO he did not received his home medication. there was also concern upon arrival patient lactic acid was 7 and concerning for sepsis patient does not have a fever however white counts are elevated we started the patient on Zosyn and vancomycin will follow blood culture and continue to monitor lactic acid and is trending down, CT scan of abdomen is negative for ischemic bowel. 09/11/2021 Interval history: today patient remains clinically stable had a colonoscopy I spoke with GI the colonoscopy was essentially normal no source of bleeding, GI suspect most likely bleeding from esophageal ulcers. however patient hemoglobin is stable will continue to monitor, patient white counts are trending down, blood culture shows no growth so far, will continue present managed will continue to monitor will have PT OT evaluate the patient, (2) GI (gastrointestinal bleed): Qualifiers: GI bleed type/associated pathology: unspecified gastrointestinal hemorrhage type Qualified Code(s): K92.2 - Gastrointestinal hemorrhage, unspecified Code(s): K92.2 - Gastrointestinal hemorrhage, unspecified Status: Acute Assessment and Plan: Continue with q.6 H&H. GI has been consulted. Type and crossmatch and transfuse as necessary. There is a plan for an EGD tomorrow afternoon he had been on Eliquis and that is now on hold. (3) Hyperlipidemia: Code(s): E78.5 - Hyperlipidemia, unspecified Status: Acute Assessment and Plan: Hold medication. (4) Hyponatremia: Code(s): E87.1 - Hypo-osmolality and hyponatremia Status: Acute Assessment and Plan: Continue with IV fluids. Sodium is 129. Recheck sodium and potassium as well as magnesium. (5) DM2 (diabetes mellitus, type 2): Code(s): E11.9 - Type 2 diabetes mellitus without complications Status: Chronic Assessment and Plan: Accu-Cheks AC and HS for tonight. The patient be NPO after midnight. Sliding scale insulin. (6) Chronic indwelling Dupree catheter: Code(s): Z97.8 - Presence of other specified devices Status: Acute Assessment and Plan: The patient has a history of urinary tension and currently has a indwelling Dupree catheter placed. (7) Congestive heart failure: Code(s): I50.9 - Heart failure, unspecified Status: Acute Assessment and Plan: Hold medications for now (8) Hypertension: Code(s): I10 - Essential (primary) hypertension Status: Acute Assessment and Plan: Hold medications (9) Atrial fibrillation: Code(s): I48.91 - Unspecified atrial fibrillation Status: Acute Asse
[2021-09-12] MEDS: SODIUM CHLORIDE 0.9% IV 1,000 ML 125 ML IV CONT (16:46)
--- NOTE | 2021-09-12 17:02 | PC.NURSE ---
Patient's blood pressure is 92/43, heart rate is 67. Metoprolol is being held for 1700 dose per Charley Carrillo
[2021-09-12 17:06] LABS: Glucose Point of Care 328 mg/dl (65-105)
[2021-09-12] MEDS: EZETIMIBE 10 MG TABLET PO (20:31)
[2021-09-12] MEDS: ATORVASTATIN 40 MG TABLET 80 MG PO (20:31)
[2021-09-12 21:14] LABS: Glucose Point of Care 277 mg/dl (65-105)
[2021-09-13] VITALS (7 sets, daily range): BP systolic 105–117; BP diastolic 41–62; PULSE 33–61; RESP 20–30; TEMP 36.4–37.2; O2SAT 94–100
[2021-09-13 05:06] LABS: Hematocrit 27.7 % (42.0-52.0); Hemoglobin 9.4 g/dL (14.0-18.0); Mean Corpuscular HGB Conc 33.9 g/dl (32-36); Mean Corpuscular Hemoglobin 31.5 pg (26-34); Mean Platelet Volume 12.9 fl (7.4-10.4); Platelet Count Result 190 k/mm3 (150-375); Red Blood Count 2.98 M/mm3 (4.6-6.20); Red Cell Distribution Width 14.3 % (11.5-14.5); White Blood Count 18.5 K/mm3 (4.5-10.0)
[2021-09-13 05:17] LABS: Add Urine Microscopic? YES; Appearance Urine Cloudy (Clear); Bacteria Urine Trace /hpf; Bilirubin Urine Negative (Negative); Blood Urine 2+ (Negative); Color Urine Yellow (Yellow); Glucose Urine UA 1+ mg/dL (Negative); Ketones Urine Negative (Negative); Leukocyte Esterase Ur Trace LEU/UL (Negative); Mucus Urine Rare /lpf; Nitrate Urine Negative (Negative); Protein Urine Negative (Negative); RBC Urine 21-50 /hpf (0-2); Specific Grav Ur 1.024 (1.001-1.035); Squamous Epithelial Cell Urine Occasional /hpf (Few); Urobilinogen Urine Negative mg/dL (<2.0)
[2021-09-13 05:24] LABS: Alanine Aminotransferase 303 U/L (4-50); Albumin Level 2.3 g/dL (3.5-5.1); Alkaline Phosphatase 76 U/L (38-126); Anion Gap 11 mmol/L (8-16); Aspartate Amino Transferase 526 U/L (17-59); Bilirubin,Total 0.9 mg/dL (0.2-1.3); Blood Urea Nitrogen 105 mg/dL (9-20); Calcium 7.5 mg/dL (8.4-10.2); Carbon Dioxide 16 mmol/L (22-30); Chloride 103 mmol/L (98-107); Estimated CRCL calculation 15 ml/min; Estimated Glomerular Filt Rate 16; Glucose 299 mg/dL (65-110); Magnesium 2.6 mg/dL (1.6-2.3); Potassium 4.6 mmol/L (3.4-5.0); Sodium 130 mmol/L (137-145)
[2021-09-13 09:09] LABS: Glucose Point of Care 285 mg/dl (65-105)
[2021-09-13] MEDS: PANTOPRAZOLE SODIUM IV 40 MG VIAL IV PUSH (09:20)
[2021-09-13] MEDS: INSULIN ASPART (*BKC) 100 UNITS/ML SUB-Q (09:20)
[2021-09-13] MEDS: FUROSEMIDE 40 MG TABLET PO (09:20)
--- NOTE | 2021-09-13 12:40 | P.DN_ITS ---
Discharge Summary Date and Time Date of : 09/13/21 Time of : 10:15 Provider Pronounced By: brady Probable Cause of Probable Cause of : Cardiac arrest Summary Hospital Course: 09/11/2021 Interval history: patient with coffee-ground emesis was seen by GI and had a EGD showed patient esophageal ulcers and gastritis but there was no obvious bleeding, GI did examine rectum and found some blood, plan is to prepare the patient for for colonoscopy,, however patient did have large BM consisting of what appeared to be blood I discussed this with the GI he and his suspect most likely remaining blood in the rectum unlikely acute bleeding, because patient had been NPO he did not received his home medication. there was also concern upon arrival patient lactic acid was 7 and concerning for sepsis patient does not have a fever however white counts are elevated we started the patient on Zosyn and vancomycin will follow blood culture and continue to monitor lactic acid and is trending down, CT scan of abdomen is negative for ischemic bowel. 09/12/2021 Interval history: today patient remains clinically stable had a colonoscopy I spoke with GI the colonoscopy was essentially normal no source of bleeding, GI suspect most likely bleeding from esophageal ulcers. however patient hemoglobin is stable will continue to monitor, patient white counts are trending down, blood culture shows no growth so far, will continue present managed will continue to monitor will have PT OT evaluate the patient, 09/13/2021 patient went into cardiac code blue was called ecological risk assessor and ACLS was started by the ecological risk assessor and continue for 22 minute, cardiology is also present after 22 minutes of continue CPR, epinephrine, bicarb, patient did not respond CPR. And patient was pronounced . Additional Data Confirmation of as documented by pronouncing clinician: Pupillary Reflex, Palpable Pulses, Response to Stimuli, Heart Tones and Breath Sounds Name of Provider Notified: len Time Provider Notified: 10:15 Provider Requests Autopsy: No Family Requests Autopsy: No College Professor Notified: Yes Date [facility] Notified of : 09/13/21 Time [facility] Notified of : 10:35
[2021-09-13 18:05] LABS: Amylase, Pleural Fluid 14 U/L
[2021-09-13 20:51] LABS: Glucose Pleural Fluid 569 mg/dL
[2021-09-14 20:13] LABS: LDH Pleural Fluid 175 U/L
== END 2021-09-13 10:15 | disposition expired | DRG 871 ==
LOC: ANHED 15:05 → ANHIMU 15:58
PROVIDERS: Internal Medicine Gastroenterology; Nurse Practitioner; Admitting Provider Internal Medicine; Emergency Provider Family Medicine; PCP Internal Medicine; Visit Provider Family Medicine
PROC: 0DJ08ZZ Inspection of Upper Intestinal Tract, Via Natural or Artificial Opening Endoscopic (ICD-10-PCS; CPT 43235; principal; 2021-09-11 14:00)
PROC: 0DJD8ZZ Inspection of Lower Intestinal Tract, Via Natural or Artificial Opening Endoscopic (ICD-10-PCS; CPT 45378; principal; 2021-09-12 07:00)
DX: A41.9 Sepsis, unspecified organism (principal); K22.11 Ulcer of esophagus with bleeding; E87.1 Hypo-osmolality and hyponatremia; I13.0 Hypertensive heart and chronic kidney disease with heart failure and stage 1 through stage 4 chronic kidney disease, or unspecified chronic kidney disease; E87.2 Acidosis; J90 Pleural effusion, not elsewhere classified; R65.20 Severe sepsis without septic shock; I50.9 Heart failure, unspecified; E11.22 Type 2 diabetes mellitus with diabetic chronic kidney disease; N18.9 Chronic kidney disease, unspecified; K29.40 Chronic atrophic gastritis without bleeding; I25.10 Atherosclerotic heart disease of native coronary artery without angina pectoris; E78.5 Hyperlipidemia, unspecified; I48.91 Unspecified atrial fibrillation; R33.9 Retention of urine, unspecified; R10.9 Unspecified abdominal pain; E11.65 Type 2 diabetes mellitus with hyperglycemia; Z79.01 Long term (current) use of anticoagulants; Z97.8 Presence of other specified devices; Z86.16 Personal history of COVID-19; Z86.73 Personal history of transient ischemic attack (TIA), and cerebral infarction without residual deficits
CPT/HCPCS: 31500; 32555; 36415; 36430; 36600; 74176; 74177; 80048; 80053; 81001; 82150; 82728; 82805; 82945; 82948; 83605; 83615; 83735; 83986; 84311; 84443; 85014; 85018; 85025; 85027; 85610; 85730; 86850; 86900; 86901; 86920; 87015; 87040; 87070; 87075; 87081; 87102; 87116; 87205; 87206; 88104; 88108; 88305; 89051; 92950; 93005; 93923; 96361; 96365; 96375; 99285; A9270; C9113; J0171; J1815; J2001; J2405; J2543; J2704; J3370; J7030; J7050; J7120; P9016; Q9967